=== PATIENT | male | born 1975 | race Caucasian/White ===

== ENCOUNTER 2017-12-05 00:11 | Inpatient (IN) ==
[2017-12-05] MEDS ORDERED: Ketamine Inj 50 MG/5 ML Syringe IV.PUSH ONE (00:17)
[2017-12-05 00:18] VITALS: TEMP 98.4
[2017-12-05] MEDS ORDERED: Sod Chloride 0.9% Inj 1,000 ML IV.SIG ONE (00:18)
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
[2017-12-05 00:34] LABS: Baso # (Auto) 0.1 th/mm3 (0.0-0.2); Baso % (Auto) 0.5 % (0.0-2.0); Eos # (Auto) 0.2 th/mm3 (0.0-0.4); Hematocrit 40.1 % (39.0-51.0); Hemoglobin 13.3 gm/dL (13.0-17.0); Lymph # (Auto) 4.2 th/mm3 (1.0-4.8); Lymph % (Auto) 43.4 % (9.0-44.0); Mean Corpuscular HGB Conc 33.1 % (32.0-36.0); Mean Corpuscular Hemoglobin 30.3 pg (27.0-34.0); Mean Corpuscular Volume 91.5 fL (80.0-100.0); Mean Platelet Volume 9.5 fL (7.0-11.0); Mono # (Auto) 0.7 th/mm3 (0.0-0.9); Mono % (Auto) 7.7 % (0.0-8.0); Neut # (Auto) 4.5 th/mm3 (1.8-7.7); Neut % (Auto) 46.4 % (16.0-70.0); Platelet Count 280 th/mm3 (150-450); Red Blood Count 4.38 mil/mm3 (4.50-5.90); Red Cell Distribution Width 13.8 % (11.6-17.2); White Blood Count 9.7 th/mm3 (4.0-11.0)
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
[2017-12-05 00:52] LABS: Alanine Aminotransferase 38 U/L (12-78); Alkaline Phosphatase 71 U/L (45-117); Anion Gap 6 meq/L (5-15); Aspartate Aminotransferase 36 U/L (15-37); Blood Urea Nitrogen 15 mg/dL (7-18); Calcium 9.1 mg/dL (8.5-10.1); Carbon Dioxide 28.3 meq/L (21.0-32.0); Chloride 105 meq/L (98-107); Glomerular Filtration Rate 70 mL/min (>89); Glucose,Random 97 mg/dL (74-106); Sodium 139 meq/L (136-145); Total Protein 7.5 g/dL (6.4-8.2)
[2017-12-05 00:53] LABS: Potassium 4.2 meq/L (3.5-5.1)
--- NOTE | 2017-12-05 00:58 | XR ---
EXAM DATE: 12/05/2017 12:36 AM EDT AGE/SEX: 42 years / Male INDICATIONS: Post reduction right ankle fracture/dislocation. CLINICAL DATA: This is the patient's initial encounter. Patient reports that signs and symptoms have been present for 1 day and indicates a pain score of 10/10. MEDICAL/SURGICAL HISTORY: None. None. COMPARISON: [facility] [place] ANKLE LIMITED RIGHT 2V, 12/05/2017. . FINDINGS: There is successful reduction of previously seen ankle dislocation. Again noted are the distal fibula r and posterior malleoli fractures which appear fairly well aligned. CONCLUSION: Successful reduction. Electronically signed by: Claude Plunkett MD 12/05/2017 12:57 AM EDT
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
[2017-12-05] MEDS ORDERED: Tetanus/Diphtheria Toxoid Adult Vaccine Inj 0.5 ML Vial IM ONE (01:00)
[2017-12-05] MEDS ORDERED: ceFAZolin 2 GM Premix Inj 2 GM/50 ML PIGGYBACK IV.SIG ONE (01:00)
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
[2017-12-05] MEDS ORDERED: HYDROmorphone PF Inj 2 MG/ML Vial IV.PUSH ONE ×2 (01:10→02:53)
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
[2017-12-05 03:21] VITALS: RESP 18
[2017-12-05] MEDS ORDERED: Morphine Inj 4 MG/ML Vial IV.PUSH PRN (04:24)
[2017-12-05] MEDS ORDERED: Acetaminophen 325 MG Tablet PO PRN (04:26)
[2017-12-05] MEDS ORDERED: Bisacodyl 10 MG Supp RECTAL PRN (04:26)
[2017-12-05] MEDS ORDERED: Sod Chloride 0.9% Inj 1,000 ML IV.CONT SCH (04:30)
[2017-12-05 05:05] LABS: Activated Partial Thrombo Time 22.4 sec (24.3-30.1); Prothrombin Time 10.4 sec (9.8-11.6)
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
[2017-12-05] MEDS ORDERED: Chlorhexidine Gluconate 2% 1 Pack (2 Cloths) TOPICAL ONE (08:30)
[2017-12-05] MEDS ORDERED: Sodium Chlor 0.9% Inj 500 ML IV.CONT ONE (08:30)
[2017-12-05] MEDS ORDERED: Metoprolol Tartrate 25 MG Tablet PO ONE (08:30)
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
[2017-12-05] MEDS ORDERED: Senna/Docusate Sodium 8.6/50 MG Tablet PO SCH (09:00)
[2017-12-05] MEDS ORDERED: Lisinopril 20 MG Tablet PO SCH (09:00)
--- NOTE | 2017-12-05 09:05 | P.PNPOD ---
Physical Exam Vital signs: Vital Signs 12/05/17 00:14 12/05/17 00:30 12/05/17 03:20 Temperature 98.4 F Pulse Rate 82 83 Respiratory Rate 18 16 18 Blood Pressure 154/89 H 149/77 H Pulse Oximetry 98 99 96 12/05/17 06:36 Temperature Pulse Rate 64 Respiratory Rate 18 Blood Pressure 144/72 H Pulse Oximetry 95 Intake & Output 12/04/17 12/05/17 12/05/17 18:59 06:59 18:59 Intake Total 1050 / 1050 Output Total 400 / 400 Balance 1050 / 1050 -400 / -400 Weight 108.862 kg Intake: IV 1050 / 1050 NS Inj 1,000 ML @ Wide Open IV. 1000 / 1000 SIG BOLUS ONE Rx#:[id number] Ancef 2 GM Premix Inj 2 gm In 50 / 50 50 ml @ 100 mls/hr IV.SIG ONCE ONE Rx#:[id number] Output: Urine 400 / 400 Medications and Allergies Active Medications: Active Medications Acetaminophen (Tylenol) 650 mg PO Q4H PRN PRN Reason: Temp > 100.4 Al Hydroxide/Mg Hydroxide (Milk Of Magnesia Liq) 30 ml PO Q12H PRN PRN Reason: Mild Constipation Bisacodyl (Dulcolax Supp) 10 mg RECTAL DAILY PRN PRN Reason: SEVERE CONSITIPATION Clonidine HCl (Catapres) 0.1 mg PO Q6H PRN PRN Reason: SEE LABEL COMMENTS Enalaprilat (Vasotec Inj) 1.25 mg IV.PUSH Q6H PRN PRN Reason: SEE LABEL COMMENTS Sodium Chloride (Ns Inj) 1,000 mls @ 125 mls/hr IV.CONT .Q8H [facility] Last Admin: 12/05/17 05:15 Dose: 125 mls/hr Lactated Ringer's (Lr 1000 Ml Inj) 1,000 mls @ 30 mls/hr IV.CONT .Q24H ONE Stop: 12/06/17 08:29 Last Admin: 12/05/17 07:45 Dose: 30 mls/hr Sodium Chloride (Ns Inj) 500 mls @ 30 mls/hr IV.CONT .[id number] ONE Stop: 12/06/17 01:09 Lactulose (Lactulose Liq) 30 ml PO DAILY PRN PRN Reason: SEVERE CONSITIPATION Lisinopril (Prinivil) 20 mg PO DAILY [facility] Morphine Sulfate (Morphine Inj) 4 mg IV.PUSH Q4H PRN PRN Reason: pain 6-10 Last Admin: 12/05/17 06:35 Dose: 4 mg Ondansetron HCl (Zofran Inj) 4 mg IV.PUSH Q6H PRN PRN Reason: NAUSEA OR VOMITING Senna/Docusate Sodium (Vee-Colace) 1 tab PO BID [facility] Sennosides (Senokot) 17.2 mg PO Q12H PRN PRN Reason: Moderate Constipation Sodium Chloride (Ns Flush) 2 ml IV.FLUSH PRN PRN PRN Reason: FLUSH AFTER USING IV ACCESS Sodium Chloride (Ns Flush) 2 ml IV.FLUSH BID [facility] Allergies Allergy/AdvReac Type Severity Reaction Status Date / Time sulfamethoxazole Allergy Hives Verified 12/05/17 00:14 [From Bactrim] trimethoprim [From Bactrim] Allergy Hives Verified 12/05/17 00:14 Home Medications Medication Instructions Recorded Confirmed Type lisinopril 20 mg PO DAILY 12/05/17 12/05/17 History Results - Labs CBC & Chem 7: 12/05/17 00:25 12/05/17 00:25 Laboratory Results - last 24 hr 12/05/17 12/05/17 12/05/17 00:25 00:25 00:30 WBC 9.7 RBC 4.38 L Hgb 13.3 Hct 40.1 MCV 91.5 MCH 30.3 MCHC 33.1 RDW 13.8 Plt Count 280 MPV 9.5 Neut % (Auto) 46.4 Lymph % (Auto) 43.4 [place] % (Auto) 7.7 Eos % (Auto) 2.0 Baso % (Auto) 0.5 Neut # (Auto) 4.5 Lymph # (Auto) 4.2 [place] # (Auto) 0.7 Eos # (Auto) 0.2 Baso # (Auto) 0.1 WBC Differential . Differential Comment Auto diff final PT 10.4 INR 1.0 APTT 22.4 L Sodium 139 Potassium 4.2 Chloride 105 Carbon Dioxide 28.3 Anion Gap 6 BUN 15 Creatinine 1.15 Estimated GFR 70 L Random Glucose 97 Calcium 9.1 Total Bilirubin 0.3 AST 36 ALT 38 Alkaline Phosphatase 71 Total Protein 7.5 Albumin 4.0 - Imaging Impressions Ankle X-Ray 12/05/17 00:17 CONCLUSION: Fractures and dislocation at the ankle. Ankle X-Ray 12/05/17 00:36 CONCLUSION: Successful reduction. Chest X-Ray 12/05/17 00:38 CONCLUSION: No acute cardiopulmonary process. Pelvis X-Ray 12/05/17 00:38 CONCLUSION: Negative AP pelvis. Ankle CT 12/05/17 01:01 CONCLUSION: 1. Fracture of the posterior malleolus and lateral malleolus. 2. Mild lateral and posterior subluxation of the talus in relation to the tibia. Assessment and Plan - Plan I was called patient at 1258 am 12/05/[address] and spoke directly [address] Dr Louie Phillips regarding patient. Reviewed patient history and original/post- reduction xrays with Dr Phillips and discussed that I will be taking patient to OR later this afternoon and Dr Phillips documented such in his note as follows: From Dr Phillips's note: (( Medical Decision Making MDM Narrative Medical decision making narrative: Fracture dislocation of the right ankle reduced at bedside with propofol. Postreduction imaging reassuring. Compartments are soft at the time of reassessment about 45 minutes after reduction and patient complained of severe pain and required 1 mg hydromorphone. Case discussed with podiatry who take the patient to the OR tomorrow 3:[address] Talamantes. )) Per chart, apparently at 424 a.m., a consult was placed by Dr Talamantes to orthopedics for the same issues. At 7 a.m. I get called from the operating room stating that the patient has been put on the OR schedule at [address] Rico Bennett for the same procedure. I called Dr Bennett at 7:11 am, and he and I discussed this and he stated he had just seen the patient and that he did not know that podiatry was consulted on this case and recommended the patient choose his surgeon. I replied to bring this to Dr Remi Akins, and called him to discuss. Dr Akins and I discussed that, since communication amongst the medical teams was clearly awry, it was in patient's best interested to have the injury addressed as soon as possible to avoid any further delay in care or miscommunication regarding this patient and his care. I agreed this was in the best interest of the patient and notified Dr Bennett of this via voicemail and called the operating room front tender to notify them at 8:[address] Dill at [address] Collins at 939 regarding communication issue when patient admitted to reduce chance of future communication issues
[2017-12-05] MEDS ORDERED: Glycopyrrolate Inj 1 MG/5 ML Syringe IV.PUSH ONE (09:18)
[2017-12-05] MEDS ORDERED: Lidocaine PF 1% Inj 5 ML Syringe OTHER ONE (09:18)
[2017-12-05] MEDS ORDERED: Bupivacaine/Epinephrine Inj 0.25% 50 ML Vial ONE (10:08)
--- NOTE | 2017-12-05 10:19 | P.OP ---
- Preoperative Diagnosis (1) Pathological fracture, right fibula, initial encounter for fracture (2) Fracture of posterior malleolus of right tibia Date of procedure: 12/05/17 Procedure: Open reduction internal fixation right distal fibula, stress exam of syndesmosis under anesthesia Anesthesia: ROSE Surgeon: Rico Chong MD Netsuite Developer: MAYELA Madrid PA-C The surgical procedure was assisted by my physician health care legal assistant. My P.A. presence was necessary throughout this case for the manipulation and positioning of the surgical extremity. My P.A. was assisting me throughout the duration of this procedure. The skill set of a physician health care legal assistant was medically necessary to complete this procedure. During the surgical case the operating room surgical technician was working at the back table and the physician health care legal assistant was directly assisting me. Operation and Findings: Implants used : ITS Plan of activity: Nonweightbearing right ankle Details of procedure: Ray was seen and evaluated preoperatively and found to have a displaced right ankle fracture. His ankle was initially dislocated. Informed consent was obtained after a detailed discussion of risk and benefits of surgery. The operative site was marked. Patient was brought to the OR, placed on the OR table, and given IV sedation and general endotracheal anesthesia. IV antibiotics were given preoperatively. A timeout procedure was performed. The operative leg was prepped with alcohol followed by Hibiclens and draped in the usual sterile fashion. Attention was turned towards the distal fibula. A four-inch incision was made over the distal fibula. The subcutaneous tissue was dissected with Bovie. The fracture site was visualized. The fracture site was cleaned with curets. The fracture was now reduced. The fracture keyed into anatomic alignment. K-wires were used to h old provisional fixation. A 2.7 mm lag screw was placed to compress fracture. A plate was selected and contoured to fit the distal fibula. The plate was provisionally held to bone with K-wires. 3.5 cortical screws were used to compress the plate to bone. Multiple screws were placed above and below the fracture. Next, attention was turned to the syndesmosis. The syndesmosis was stressed. There was no widening of the syndesmosis with external rotation of the ankle. The posterior malleolus fragment was also visualized under fluoroscopy. There was minimal articular surface present on the posterior malleolus fragment. This fracture fragment was well aligned. Incisions were thoroughly irrigated. The subcutaneous tissue was closed with 3-0 Vicryl and the skin was closed with 3-0 nylon. Sterile dressings were applied. A well molded well-padded splint was applied. The patient was transferred to Recovery in stable condition. Needle and sponge counts were correct.
[2017-12-05] MEDS ORDERED: *morphine SULFATE 10 MG/ML PERIprocedure ONLY ONE ×2 (10:53→11:02)
[2017-12-05] MEDS ORDERED: Morphine Inj 4 MG/ML Vial ONE (10:55)
[2017-12-05] MEDS ORDERED: fentaNYL Citrate Inj 100 MCG/2 ML Ampul ONE (10:55)
[2017-12-05] MEDS ORDERED: *HYDROmorphone PF Inj 1 MG/ML Ampul PERIprocedural Use ONLY ONE (11:14)
[2017-12-05] MEDS ORDERED: Ketorolac Inj 30 MG/ML (IVP) Vial IV.PUSH ONE (11:15)
[2017-12-05 12:05] VITALS: BP 154/92; PULSE 81; O2SAT 99
--- NOTE | 2017-12-05 13:59 | XR ---
EXAM DATE: 12/05/2017 12:00 AM EDT AGE/SEX: 42 years / Male INDICATIONS: right ankle. CLINICAL DATA: This is the patient's subsequent encounter. Patient reports that signs and symptoms h ave been present for 1 day and indicates a pain score of Nonresponsive. MEDICAL/SURGICAL HISTORY: None. None. COMPARISON: No prior exams available for comparison. FINDINGS: There is plate and screw fixation of the lateral malleolus. Normal alignment across the ankle joint. CONCLUSION: Fixation lateral malleolus. Electronically signed by: Remi Galicia MD 12/05/2017 1:58 PM EDT
== END 2017-12-05 13:23 | disposition home or self-care (01) ==
LOC: NEPE 00:11 → NEDA 01:30
PROVIDERS: ADMIT Internal Medicine; ATTEND Internal Medicine
PROC: ORIFANK (2017-12-05 09:16)